=== PATIENT | male | born 1935 | race Caucasian/White ===

== ENCOUNTER 2016-09-10 08:37 | Emergency (ER) | payer MEDICARE, MEDICAID ==
[~2016-09-10] VITALS: Ht 170.2 cm; Wt 75.5 kg
[~2016-09-10 08:37] MED LIST: AMLO5TAB4 PO; ATOR20TA38 PO; CHOL100062 PO; CLOP75TA28 PO; DOCU-144 PO; HYDR-902 PO; LEVE500T8 PO; LEVO25TA59 PO; TAMS-14 PO
[2016-09-10 08:41] VITALS: Ht 170.2 cm; Wt 75.5 kg
[2016-09-10] MEDS ORDERED: ONDANSETRON 4 MG INJ IV STA (08:49)
[2016-09-10] MEDS ORDERED: morphine 2 MG INJ IV STA (08:49)
[2016-09-10] MEDS ORDERED: SOD CHLORIDE 0.9% 500 ML IV STA (08:49)
[2016-09-10 09:22] LABS: BASOPHILS % 0.3 % (0.0-2.0); EOSINOPHILS # 1.4 10^3/ul (0.0-0.5); EOSINOPHILS % 19.9 % (0.0-7.0); HEMATOCRIT 48.5 % (42.0-52.0); HEMOGLOBIN 15.9 g/dl (14.0-18.0); LYMPHOCYTES # 1.8 10^3/ul (0.8-2.9); LYMPHOCYTES % 25.7 % (15.0-51.0); MEAN CORPUSCULAR HEMOGLOBIN 29.3 pg (29.0-33.0); MEAN CORPUSCULAR HGB CONC 32.8 g/dl (32.0-37.0); MEAN CORPUSCULAR VOLUME 89.5 fl (82.0-101.0); MEAN PLATELET VOLUME 10.6 fl (7.4-10.4); MONOCYTE # 0.7 10^3/ul (0.3-0.9); MONOCYTES % 10.7 % (0.0-11.0); NEUTROPHILS % 43.3 % (39.0-77.0); PLATELET COUNT 200 10^3/UL (140-415); RED BLOOD COUNT 5.42 10^6/ul (4.70-6.10); WHITE BLOOD COUNT 6.8 10^3/ul (4.8-10.8)
--- NOTE | 2016-09-10 09:29 | RADRPT ---
PROCEDURE: CT Abdomen and Pelvis without contrast. CLINICAL INDICATION: Abdominal pain and rectal bleeding. TECHNIQUE: CT scan of the abdomen and pelvis without contrast was performed on a multidetector hig h-resolution CT scanner. The patient was scanned without intravenous contrast. Coronal and sagittal reformatted images were obtained from the axial source images. Images were reviewed on a high-resol Urbful PACS workstation. The total exam CTDI equals 9.9 mGy and the total exam DLP equals 615.98 mGy- cm. One or more of the following dose reduction techniques were used: Automated exposure control. Adjustment of the mA and/or kV according to patient size. Use of iterative reconstruction technique. COMPARISON: None FINDINGS: CT abdomen: The lung bases are clear. The heart size is mildly enlarged without pericardial thickening or effus ion. The liver is normal in size and density without focal mass or intrahepatic biliary dilatation. The spleen is normal in size and homogeneous in density. Capsular calcifications are seen along th e lateral aspect of the spleen. The stomach is partially collapsed, but is grossly unremarkable. T he pancreas as visualized is normal. The gallbladder is unremarkable. There is no evidence for bili lilly dilatation. The adrenal glands are symmetric and normal. The kidneys are symmetrically unremar kable as well. No renal calculus or obstructive uropathy or mass lesion is seen. There is approxima tely 7 x 5.5 cm exophytic cortical series with thin wall calcifications in the upper pole right kidn ey. There is mild ectasia of the infrarenal abdominal aorta measures up to 2.6 cm. There is no retroper itoneal lymphadenopathy. The luis manuel hepatis region is clear. There is diverticulosis of the left col on severe in the sigmoid without evidence of acute diverticulitis. There is a small hiatal hernia. CT pelvis: There fat-containing bilateral inguinal hernias. The small bowel loops situated within the pelvis a re unremarkable. There is mild prostatomegaly. The pelvic sidewalls and inguinal regions are clear. The sigmoid colon and rectum are remarkable for sigmoid diverticulosis. No mass, lymphadenopathy, or free fluid is seen. No acute inflammation is seen. No osteolytic or osteoblastic lesion is dete cted. IMPRESSION: 1. No mass, lymphadenopathy, or focal acute inflammatory process is identified. 2. Diverticulosis of the left colon severe in the sigmoid without evidence of acute diverticulitis. 3. Right renal exophytic cyst with thin wall calcifications. 4. 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 5. Mild cardiomegaly. 6. Small hiatal hernia. 7. Fat containing small inguinal hernias. RPTAT: PP .Brooklyn Duncan MD, Date Time Electronically viewed and signed by .Brooklyn Duncan MD, on 09/10/2016 09:28 .O/
[2016-09-10 09:37] LABS: ALBUMIN 4.3 g/dl (3.3-4.9); ALBUMIN/GLOBULIN RATIO 1.13; BILIRUBIN,INDIRECT 1.2 mg/dl (0-1.1); BILIRUBIN,TOTAL 1.2 mg/dl (0.2-1.3); CALCIUM 9.5 mg/dl (8.4-10.2); CREATININE 1.03 mg/dl (0.61-1.24); POTASSIUM 4.3 mmol/L (3.5-5.1); TOTAL PROTEIN 8.1 g/dl (6.1-8.1)
[2016-09-10 09:43] LABS: INR 0.97; PROTIME 12.9 Sec (12.2-14.2)
[2016-09-10 09:44] LABS: PARTIAL THROMBOPLASTIN TIME 29.2 Sec (25.0-35.0)
[2016-09-10 10:04] VITALS: BP 122/83; PULSE 78; RESP 16; TEMP 98.3
--- NOTE | 2016-09-10 10:06 | ERA ---
ER Documentation Chief Complaint Date/Time DATE: 09/10/16 TIME: 10:02 Chief Complaint abd pain with rectal bleeding x 3 days HPI This is an 81-year-old Belarusian speaking male. An management lecturer was used. He describes several days of abdominal cramping that is diffuse, mild, 2 out of 10. He noted some blood-streaked stool over the past 24-48 hours. He denies any clots or significant filling of the bowl. He denies any weight loss. He has not had a colonoscopy at this point in his life. ROS All systems reviewed and are negative except as per history of present illness. Medications Home Meds Active Scripts Clopidogrel Bisulfate (Clopidogrel) 75 Mg Tablet, 75 MG PO DAILY, #30 TAB Prov:TISH STUBBS MD 12/14/15 Docusate Sodium* (Colace*) 100 Mg Capsule, 100 MG PO TID, #30 CAP Prov:DAWN BARKLEY MD 11/17/15 Hydrocodone/Acetaminophen (Selmer 10-325 Tablet) 1 Each Tablet, 1 TAB PO Q6H Y for PAIN, #7 TAB Prov:DAWN BARKLEY MD 11/17/15 Levothyroxine Sodium* (Synthroid*) 25 Mcg Tab, 25 MCG PO DAILY@06, #30 TAB 1 Refill Prov:VIANCA WINSLOW MD 05/12/14 Reported Medications Amlodipine Besylate* (Norvasc*) 5 Mg Tablet, 5 MG PO DAILY, TAB 12/12/15 Cholecalciferol* (Vitamin D3*) 1,000 Unit Tablet, 2000 UNIT PO DAILY, TAB 12/12/15 Atorvastatin Calcium* (Atorvastatin Calcium*) 20 Mg Tablet, 20 MG PO HS, TAB 05/09/14 Levetiracetam* (Levetiracetam*) 500 Mg Tablet, 500 MG PO BID, TAB 05/09/14 Tamsulosin Hcl* (Flomax*) 0.4 Mg Cap.sr.24h, 0.4 MG PO HS 06/10/12 Allergies Allergies: Coded Allergies: No Known Allergy (Unverified , 09/10/16) PMhx/Soc History of Surgery: No Anesthesia Reaction: No Hx Neurological Disorder: Yes (CVA) Hx Respiratory Disorders: No Hx Cardiac Disorders: Yes (HTN, AFIB, CHOL) Hx Psychiatric Problems: No Hx Miscellaneous Medical Probl: Yes (HTn, CVA, amyloid angiopathy, A-Fib, BPH) Hx Alcohol Use: Yes (50 years ago. Hard drinks) Hx Substance Use: No Hx Tobacco Use: No Smoking Status: Former smoker FmHx Family History: No diabetes Physical Exam Vitals Vital Signs Date Time Temp Pulse Resp B/P Pulse Ox O2 Delivery O2 Flow Rate FiO2 09/10/16 08:41 98.2 81 18 158/92 96 Physical Exam General: Well developed, well nourished, no acute distress Head: Normocephalic, atraumatic. Eyes: Pupils equally reactive, EOM intact ENT: Moist mucous membranes Neck: Supple, no lymphadenopathy Respiratory: Lungs clear bilaterally, no distress Cardiovascular: RRR, no murmurs, rubs, or gallops Abdominal: Soft, non-tender, non-distended, no peritoneal signs : External exam with brown stool, no melena, no blood, no hemorrhoid MSK: No edema, no unilateral swelling, 5/5 strength Neurologic: Alert and oriented, moving all extremities, normal speech, no focal weakness, no cerebellar signs Skin: No rash Psych: Normal mood Result Diagram: 09/10/1691409/10/16914 Results 24 hrs Laboratory Tests Test 09/10/16 09:15 White Blood Count 6.810^3/ul Red Blood Count 5.4210^6/ul Hemoglobin 15.9g/dl Hematocrit 48.5% Mean Corpuscular Volume 89.5fl Mean Corpuscular Hemoglobin 29.3pg Mean Corpuscular Hemoglobin Concent 32.8g/dl Red Cell Distribution Width 14.0% Platelet Count 80420^3/UL Mean Platelet Volume 10.6fl Neutrophils % 43.3% Lymphocytes % 25.7% Monocytes % 10.7% Eosinophils % 19.9% Basophils % 0.3% Nucleated Red Blood Cells % 0.0/100WBC Neutrophils # 3.010^3/ul Lymphocytes # 1.810^3/ul Monocytes # 0.710^3/ul Eosinophils # 1.410^3/ul Basophils # 0.010^3/ul Nucleated Red Blood Cells # 0.010^3/ul Prothrombin Time 12.9Sec Prothrombin Time Ratio 1.0 INR International Normalized Ratio 0.97 Activated Partial Thromboplast Time 29.2Sec Sodium Level 141mmol/L Potassium Level 4.3mmol/L Chloride Level 101mmol/L Carbon Dioxide Level 28mmol/L Anion Gap 16 Blood Urea Nitrogen 18mg/dl Creatinine 1.03mg/dl Glucose Level 139mg/dl Calcium Level 9.5mg/dl Total Bilirubin 1.2mg/dl Direct Bilirubin 0.00mg/dl Indirect Bilirubin 1.2mg/dl Aspartate Amino Transf (AST/SGOT) 31IU/L Alanine Aminotransferase (ALT/SGPT) 38IU/L Alkaline Phosphatase 125IU/L Total Protein 8.1g/dl Albumin 4.3g/dl Globulin 3.80g/dl Albumin/Globulin Ratio 1.13 Lipase 31U/L Current Medications Medications (Trade) Dose Ordered Sig/Audra Route PRN Reason Start Time Stop Time Status Last Admin Dose Admin Sodium Chloride (NS) 500 ml @ 500 mls/hr Q1H STAT IV 09/10/16 08:49 09/10/16 09:48 DC 09/10/16 09:45 Morphine Sulfate (morphine) 2 mg ONCE STAT IV 09/10/16 08:49 09/10/16 08:51 DC 09/10/16 09:45 Ondansetron HCl (Zofran Inj) 4 mg ONCE STAT IV 09/10/16 08:49 09/10/16 08:51 DC 09/10/16 09:45 Procedures/MDM EKG, MONITORS, & DIAGNOSTIC IMAGING: CT abdomen and pelvis IMPRESSION: 1. No mass, lymphadenopathy, or focal acute inflammatory process is identified. 2. Diverticulosis of the left colon severe in the sigmoid without evidence of acute diverticulitis. 3. Right renal exophytic cyst with thin wall calcifications. 4. 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 5. Mild cardiomegaly. 6. Small hiatal hernia. 7. Fat containing small inguinal hernias. LAB INTERPRETATION: No leukocytosis, no coagulopathy, normal hemoglobin MEDICAL DECISION MAKING: The patient presents with abdominal cramping, blood-streaked stool. The patient is a very broad differential given his age but this is most likely consistent with diverticular process, consider possible malignancy given lack of colonoscopy and routine health screening. Low concern for acute intra- abdominal process or upper GI hemorrhage. ER COURSE: The patient's laboratory testing is reassuring, no evidence of upper GI bleed. His rectal exam reveals brown stool. No evidence of active hemorrhage. CT shows diverticulosis but no other acute intra-abdominal process. The patient absolutely needs to follow-up with primary care physician and have colonoscopy to rule out malignancy. This was indicated to the patient and family using an management lecturer. The patient does not require hospitalization. He is safe for discharge. I kept the patient and/or family informed of laboratory and diagnostic imaging results throughout the emergency room course. DISPOSITION PLAN: We discussed follow up with the patient's primary care doctor within 24 to 48 hours as needed. We also discussed return to the emergency room for worsening symptoms or worsening condition. Outpatient referral: Gastroenterology Discharge Medications: None required Departure Diagnosis: Primary Impression: Abdominal pain Qualified Code: R10.84 - Generalized abdominal pain Additional Impression: Rectal bleeding Condition: Stable Patient Instructions: Abdominal Pain, Rectal Bleed, Stable Referrals: [facility] () Usted se zazueta hecho un examen mdico de control que le indica que no est en fernando condicin que requiera tratamiento urgente en el Departamento de Emergencia. Un estudio ms profundo y el tratamiento de south condicin pueden esperar sin ningn riesgo hasta que usted sea atendida/o en el consultorio de south mdico o fernando cl aryan. Es responsabilidad suya arreglar fernando epifanio para el seguimiento del riley. MANEJO DE CONDICIONES NO URGENTES EN EL FUTURO 1) Si usted tiene un mdico de atencin primaria: Usted debera llamar a south mdico de atencin primaria antes de venir al departamento de emergencia. Despus de las horas de consultorio, south doctor o south asociado/a est disponible por telfono. El mdico o enfermero de steve en el servicio telefnico puede asesorarle por kenny medio para atender el problema, o riley contrario se puede programar fernando epifanio. 2) Si usted no tiene un mdico de atencin primaria: Llame al mdico o clnica de referencia que aparece abajo sukhdev las horas de consultorio para hacer fernando epifanio para que le vean. CLINICAS: [facility] [phone] [facility] [phone] [facility] [phone] [facility] [phone] [facility]. [place] [address] [phone] [facility] [phone] [facility]. [facility] () Usted se zazueta hecho un examen mdico de control que le indica que no est en fernando condicin que requiera tratamiento urgente en el Departamento de Emergencia. Un estudio ms profundo y el tratamiento de south condicin pueden esperar sin ningn riesgo hasta que ted sea atendida/o en el consultorio de south mdico o fernando cl aryan. Es responsabilidad suya arreglar fernando epifanio para el seguimiento del riley. MANEJO DE CONDICIONES NO URGENTES EN EL FUTURO 1) Si usted tiene un mdico de atencin primaria: ted debera llamar a south mdico de atencin primaria antes de venir al departamento de emergencia. Despus de las horas de consultorio, south doctor o south asociado/a est disponible por telfono. El mdico o enfermero de steve en el servicio telefnico puede asesorarle por kenny medio para atender el problema, o riley contrario se puede programar fernando epifanio. 2) Si usted no tiene un mdico de atencin primaria: Llame al mdico o condado institucions de referencia que aparece abajo sukhdev las horas de consultorio para hacer fernando epifanio para que le vean. SI USTED NO PUEDE PAGAR PARA HEIDY UN MEDICO puede ir a: [facility] [address] [place] [address] [facility] [address] [place] [address] [facility] [address] [place] [address] [facility] [address] [place], [place] [id number] Additional Instructions: Llame al doctor nombrado enmanuel (Referral Sources) MAANA y gurinder fernando EPIFANIO PARA DENTRO DE FERNANDO SEMANA. Dgale a la secretaria que nosotros le instruimos hacer esta epifanio.Avise o llame si south condicin se empeora antes de la epifanio. SHERRIE LOUIE MD Sep 10, 2016 10:06
== END 2016-09-10 10:11 | disposition home or self-care (01) ==
LOC: E/R 08:37
DX: R10.84 Generalized abdominal pain (principal); K62.5 Hemorrhage of anus and rectum; R40.2142 Coma scale, eyes open, spontaneous, at arrival to emergency department; R40.2252 Coma scale, best verbal response, oriented, at arrival to emergency department; R40.2362 Coma scale, best motor response, obeys commands, at arrival to emergency department; I10 Essential (primary) hypertension; Z87.891 Personal history of nicotine dependence
CPT/HCPCS: 36415; 74176; 80053; 83690; 85025; 85610; 85730; 96374; 96375; 99285; J2270; J2405; J7040

== ENCOUNTER 2016-09-12 10:00 | Emergency (ER) | payer OTHER ==
[~2016-09-12] VITALS: Ht 165.1 cm; Wt 77.3 kg
[2016-09-12 10:04] VITALS: Ht 165.1 cm; Wt 77.3 kg
--- NOTE | 2016-09-12 10:24 | RADRPT ---
PROCEDURE: Noncontrast CT Head. CLINICAL INDICATION: Code stroke. Acute neurologic deficit. TECHNIQUE: Noncontrast CT of the head was obtained. The administered radiation dose was CTDI vol = 43.05 mGy, DLP = 630.2 mGy-cm. One or more of the following dose reduction techniques were used: Aut omated exposure control, Adjustment of the mA and/or kV according to patient size, or Use of iterati ve reconstruction technique. COMPARISON: There are no similar studies submitted for comparison. FINDINGS: There is minimal generalized cerebral volume loss. There is extensive periventricular hypoattenuatio n suggesting chronic microvascular ischemic changes. There are mild vascular calcifications within the intracranial carotid arteries. There is a chronic right frontal parietal infarction partially i nvolving the right insula. There is an age indeterminate but possibly chronic superior left occipita l lobe infarction. There is no loss of browning-white differentiation to suggest acute territorial infarction. There is no acute intracranial hemorrhage. There is no mass effect. No midline shift is identified. The orbits are within normal limits. The paranasal sinuses are well aerated. No destructive osseous lesion is identified. IMPRESSION: 1. No loss of browning-white differentiation to suggest acute territorial infarction. Consider CTA of t he head/neck or noncontrast MRI of the brain as clinically warranted. 2. No acute intracranial hemorrhage. 3. Minimal generalized cerebral volume loss. 4. Advanced chronic microvascular ischemic changes. 5. Chronic right frontal parietal infarction. 6. Age indeterminate but possibly chronic left superior septal lobe infarction. Further findings as detailed above. These findings were discussed with Dr. Ramirez Best at 10:22 a.m. on September 12, 2016. RPTAT: PP .Gavin Gonzalez MD, MD Date Time Electronically viewed and signed by .Gavin Gonzalez MD, on 09/12/2016 10:24 .F/
[2016-09-12 10:31] LABS: BASOPHILS % 0.2 % (0.0-2.0); EOSINOPHILS # 0.8 10^3/ul (0.0-0.5); EOSINOPHILS % 10.2 % (0.0-7.0); HEMATOCRIT 47.8 % (42.0-52.0); HEMOGLOBIN 15.9 g/dl (14.0-18.0); LYMPHOCYTES % 23.7 % (15.0-51.0); MEAN CORPUSCULAR HEMOGLOBIN 29.6 pg (29.0-33.0); MEAN CORPUSCULAR HGB CONC 33.3 g/dl (32.0-37.0); MEAN PLATELET VOLUME 10.5 fl (7.4-10.4); MONOCYTE # 0.7 10^3/ul (0.3-0.9); MONOCYTES % 8.3 % (0.0-11.0); NEUTROPHIL # 4.7 10^3/ul (1.6-7.5); NEUTROPHILS % 57.2 % (39.0-77.0); PLATELET COUNT 192 10^3/UL (140-415); RED BLOOD COUNT 5.37 10^6/ul (4.70-6.10); RED CELL DISTRIBUTION WIDTH 13.4 % (11.5-14.5); WHITE BLOOD COUNT 8.2 10^3/ul (4.8-10.8)
[2016-09-12] MEDS ORDERED: TAMS-14 PO (10:54)
[2016-09-12] MEDS ORDERED: GABA100C14 PO (10:54)
[2016-09-12] MEDS ORDERED: OXYB10TA6 PO (10:54)
[2016-09-12] MEDS ORDERED: AMLO5TAB4 PO (10:55)
[2016-09-12] MEDS ORDERED: SERT50TA6 PO (10:55)
[2016-09-12] MEDS ORDERED: LOSA50TA6 PO (10:55)
[2016-09-12 10:56] LABS: INR 0.99; PARTIAL THROMBOPLASTIN TIME 26.9 Sec (25.0-35.0); PROTIME 13.1 Sec (12.2-14.2)
[2016-09-12 10:57] LABS: ALANINE AMINOTRANSFERASE 34 IU/L (13-69); ALBUMIN 4.3 g/dl (3.3-4.9); ALBUMIN/GLOBULIN RATIO 1.07; ALKALINE PHOSPHATASE 130 IU/L (42-121); ANION GAP 20 (8-16); ASPARTATE AMINO TRANSFERASE 29 IU/L (15-46); BILIRUBIN,INDIRECT 1.4 mg/dl (0-1.1); BILIRUBIN,TOTAL 1.4 mg/dl (0.2-1.3); BLOOD UREA NITROGEN 15 mg/dl (7-20); CALCIUM 9.5 mg/dl (8.4-10.2); CARBON DIOXIDE 27 mmol/L (21-31); CHLORIDE 100 mmol/L (97-110); CHOL/HDL RATIO 5.4 RATIO; CHOLESTEROL 239 mg/dl (100-200); CREATININE 0.76 mg/dl (0.61-1.24); GLUCOSE 172 mg/dl (70-220); HDL CHOLESTEROL 44 mg/dl (31-75); POTASSIUM 3.2 mmol/L (3.5-5.1); SODIUM 144 mmol/L (135-144); TOTAL PROTEIN 8.3 g/dl (6.1-8.1); TRIGLYCERIDES 208 mg/dl (0-149)
[2016-09-12] MEDS ORDERED: LABETALOL HCL 20MG INJ IV PRN (11:00)
[2016-09-12] MEDS ORDERED: ALTEPLASE (tPA) 1 MG/ML BOLUS SYG IV* ONE (11:00)
[2016-09-12] MEDS ORDERED: ALTEPLASE 100 MG INJ IV* ONE (11:00)
--- NOTE | 2016-09-12 11:05 | ERA ---
ER Documentation Chief Complaint Date/Time DATE: 09/12/16 TIME: 1000 Chief Complaint SUDDEN ALOC, GAZE TO LT WITH RT SIDE WEAKNESS, LAST NORMAL 0900 HPI 82-year-old male presents with an altered level of consciousness. Patient is aphasic. History is available for my conversations with the ornamental iron worker. Patient was in his usual state of health until approximately 9 AM today. His last known well time was after 8 AM, when he had a normal breakfast, was talking and ambulatory without difficulty. At 9 AM the ornamental iron worker noted that he had a fall. After the fall, he was not able to use his right upper extremity and was not communicating. The paramedics were immediately called. Patient had no obvious seizure activity. Patient had no symptoms prior to the episode. Baseline neurologic function of the patient is that he has had previous strokes with left upper extremity weakness, but was ambulatory and talking prior to today's event. I have reviewed the instructional leader pre-hospital care. Pre-hospital vital signs were reviewed. Pre-hospital diagnostic tests were reviewed. Upon arrival, patient has no further ability to give any history. ROS All systems reviewed and are negative except as per history of present illness. Medications Home Meds Reported Medications Tamsulosin Hcl* (Flomax*) 0.4 Mg Cap.er.24h, 0.4 MG PO HS, CAP 09/12/16 Gabapentin* (Gabapentin*) 100 Mg Capsule, 100 MG PO TID, #90 CAP 09/12/16 Oxybutynin Chloride* (Ditropan* XL) 10 Mg Tab.er.24, 10 MG PO DAILY, TAB.SA 09/12/16 Allergies Allergies: Coded Allergies: No Known Allergy (Unverified , 09/12/16) PMhx/Soc History of Surgery: Yes (PROSTATE, ABD) Anesthesia Reaction: No Hx Neurological Disorder: Yes (CVA WITH LT SIDE WEAKNESS) Hx Respiratory Disorders: No Hx Cardiac Disorders: Yes (HTN, HYPERLIPIDEMIA) Hx Psychiatric Problems: Yes (DEPRESSION) Hx Miscellaneous Medical Probl: No Hx Alcohol Use: No Hx Substance Use: No Hx Tobacco Use: No Smoking Status: Unknown if ever smoked FmHx Noncontributory for chief complaint Physical Exam Vitals Vital Signs Date Time Temp Pulse Resp B/P Pulse Ox O2 Delivery O2 Flow Rate FiO2 09/12/16 10:08 Nasal Cannula 2 09/12/16 10:04 97.7 101 20 173/104 98 Physical Exam GENERAL: Patient is an ill, altered gentleman. HEENT: Pupils equal, round, and reactive to light. EOMI. There is no scleral icterus. Airway is protected NECK: C-spine is soft and supple, there is no meningismus. There is no cervical lymphadenopathy. No obvious bruit LUNGS: Clear to auscultation bilaterally. There are no rales, wheezes or rhonchi. HEART: Irregularly irregular rate and rhythm with no murmurs rubs or gallops ABDOMEN: Soft, non-tender, non-distended. There are bowel sounds in all four quadrants. No rebound or guarding. EXTREMITIES: There is no peripheral cyanosis or edema. No focal swelling or erythema. NEURO: Patient is obtunded and nonresponsive to verbal or painful stimuli. His eyes are open spontaneously with a left-sided gaze preference. Pupils are small but equal and reactive. Gag reflex is maintained. Patient appears to have a facial droop involving the right side. Patient is aphasic, he occasionally grunts. Left upper extremity has weakness, which according to the care provider is baseline. Patient has a flaccid paralysis of the right upper extremity. Patient moves both lower extremities weakly and equally. However, this is nonpurposeful movements of far as I can tell. Patient seems to have a questionable visual acuity deficit with inattention to both sides of the body. SKIN: There is no apparent rash or petechiae. HEME/LYMPHATIC: There is no evidence of excessive bruising or lymphedema. PSYCHIATRIC: The patient does not appear anxious or depressed. Result Diagram: 09/12/16 1020 Results 24 hrs Laboratory Tests Test 09/12/16 10:03 09/12/16 10:20 Bedside Glucose 161mg/dL White Blood Count 8.210^3/ul Red Blood Count 5.3710^6/ul Hemoglobin 15.9g/dl Hematocrit 47.8% Mean Corpuscular Volume 89.0fl Mean Corpuscular Hemoglobin 29.6pg Mean Corpuscular Hemoglobin Concent 33.3g/dl Red Cell Distribution Width 13.4% Platelet Count 22076^3/UL Mean Platelet Volume 10.5fl Neutrophils % 57.2% Lymphocytes % 23.7% Monocytes % 8.3% Eosinophils % 10.2% Basophils % 0.2% Nucleated Red Blood Cells % 0.0/100WBC Neutrophils # 4.710^3/ul Lymphocytes # 2.010^3/ul Monocytes # 0.710^3/ul Eosinophils # 0.810^3/ul Basophils # 0.010^3/ul Nucleated Red Blood Cells # 0.010^3/ul Current Medications Medications (Trade) Dose Ordered Sig/Audra Route PRN Reason Start Time Stop Time Status Last Admin Dose Admin Labetalol HCl (Labetalol) 20 mg Q20M PRN IV ELEVATED BLOOD PRESSURE 09/12/16 11:00 Alteplase, Recombinant (Activase) 7 mg BOLUS OVER 1 MIN ONCE IV* 09/12/16 11:00 09/12/16 11:01 Alteplase, Recombinant (Activase) 62.6 mg ISCHEMIC STROKE ONCE IV* 09/12/16 11:00 09/12/16 11:01 Procedures/MDM Patient was taken to a room, seen and evaluated. Comfort measures were initiated. Diagnostic tests were ordered and reviewed. 3 LEAD RHYTHM STRIP: Atrial fibrillation with controlled ventricular response EK lead EKG reviewed by myself: Atrial fibrillation with controlled ventricular response Normal Charl[place] and intervals Nonspecific ST and T-wave changes Impression: Abnormal nonspecific EKG RADIOLOGY: reviewed with the radiologist. Code stroke CT returned at approximately 1030 CONSULTATION: Telemetry neurology was notified at approximately 1002 and called back expeditiously. [facility] was contacted at 1033 for transport. REEVALUATION: Patient's initial blood pressure was elevated. After returning from CT scan at approximately 1035 blood pressure was controlled without the use of medication. Consent was obtained from the son verbally at approximately 1040 and IV TPA was initiated. MEDICAL DECISION MAKING: Patient presents with acute neurologic changes concerning for a stroke. Critical care time:> 35 minutes Critical care has included ongoing critical monitoring of neurologic as well as hemodynamic status. Multiple consultations including: Code stroke: Upon arrival Tele neurology: Upon arrival Radiology: As noted above with no evidence of hemorrhage on CT scan Accepting MD: Patient is accepted to [facility] for higher level of care TPA: TPA initiated Intravascular decision making: Patient is high risk for a large vessel occlusion and will be transferred for higher level of care. CTA has been ordered and is pending at this time. Medical decision making: This is an 82-year-old male with a history of atrial fibrillation and previous strokes but who is normally talkative and ambulatory prior to today's event. Although with his history of previous strokes, he is obviously high risk TPA candidate, his presenting NIHSS score is above 30 and his disabilities would leave him bedbound and noncommunicative. Therefore, because his blood pressure was controlled and he was within the window of TPA, I felt the risk and benefits benefited TPA administration. TPA has been given and patient will be transferred for stroke higher level of care given his obvious high risk presentation. Departure Diagnosis: Primary Impression: Stroke Additional Impressions: Atrial fibrillation Encephalopathy Hypertension Condition: Critical JACK CAMILO Sep 12, 2016 11:05
[2016-09-12 11:09] LABS: TROPONIN-I < 0.012 ng/ml (0.00-0.12)
--- NOTE | 2016-09-12 11:21 | RADRPT ---
PROCEDURE: Chest x-ray CLINICAL INDICATION: Shortness of breath TECHNIQUE: Chest single view COMPARISON: None FINDINGS: The heart is normal in size. The pulmonary vessels are normal in caliber. The lungs are clear. Th e costophrenic angles are sharp. The visualized bony thorax is unremarkable. There is mild cardiome adam and an sclerotic aortic calcification. Pulmonary vessels are normal in caliber. Lung volumes are low with bibasilar atelectasis. Lungs otherwise clear. Costophrenic angles are sharp. There i s grade 1 right AC joint separation. IMPRESSION: 1. Mild cardiomegaly and an sclerotic aortic calcification. 2. Low lung volumes with bibasilar atelectasis RPTAT: HH .Mendez Peña MD, Date Time Electronically viewed and signed by .Mendez Peña MD, on 09/12/2016 11:20 .W/
[2016-09-12 11:50] VITALS: BP 167/103; PULSE 102; RESP 19; TEMP 97.2
--- NOTE | 2016-09-12 12:06 | RADRPT ---
PROCEDURE: CTA Head. CLINICAL INDICATION: Stroke. TECHNIQUE: CTA of the head was obtained with 1 mm axial images. Sagittal and coronal reformations and MIPs were provided. The administered radiation dose was CTDI vol = 110.51, 33.21 mGy, DLP = the 5.26, 622.93 mGy-cm. Images were obtained prior following the intravenous contrast administration o f 90 cc of Visipaque 320 contrast. Coronal and sagittal as well as maximal intensity projection ref ormations were obtained. One or more of the following dose reduction techniques were used: Automated exposure control, Adjustment of the mA and/or kV according to patient size, or Use of iterative rec onstruction technique. COMPARISON: There are no similar studies submitted for comparison. Noncontrast CT of the head from he same day. FINDINGS: CTA head: Carotid arteries: There are mild vascular calcifications within the bilateral cavernous carotid verónica liss. Patent bilaterally without evidence of stenosis. Anterior cerebral arteries: Patent bilaterally without evidence of stenosis. Middle cerebral arteries: Patent bilaterally without evidence of stenosis. Posterior cerebral arteries: Patent bilaterally without evidence of stenosis. Anterior communicating artery: Present. Posterior communicating arteries: Not visualized bilaterally. Basilar artery: Patent without evidence of stenosis. Vertebral arteries: Patent bilaterally without evidence of stenosis. Vertebral artery dominance: Right. Aneurysm: There is a small conical protrusion at the origin of the expected left posterior communic ating artery likely representing an infundibulum or less likely aneurysm. Venous sinuses: Patent. CT head with contrast: No significant change from recent noncontrast head CT given limitations of contrast. IMPRESSION: 1. No evidence of arterial occlusion or thrombus. 2. No evidence of intracranial arterial stenosis. 3. Small conical protrusion at the origin of the expected left posterior communicating artery likel y representing an infundibulum or less likely aneurysm. Follow-up imaging may be performed as clinic ally warranted. Further findings as detailed above. These findings were discussed with Dr. Ramirez Best at 12:02 p.m. on September 12, 2016. RPTAT: PP .Gavin Gonzalez MD, Date Time Electronically viewed and signed by .Gavin Gonzalez MD, MD on 09/12/2016 12:06 .F/
[2016-09-13] MEDS ORDERED: IODIXANOL LOCM 100 ML BTL ONE (18:02)
[2016-09-13] MEDS ORDERED: SOD CHLORIDE 0.9% 100 ML ONE (18:02)
== END 2016-09-12 12:41 | disposition short-term general hospital (02) ==
LOC: EDBD → MERGE 10:00 → E/R 10:00
DX: I63.9 Cerebral infarction, unspecified (principal); I48.91 Unspecified atrial fibrillation; G93.40 Encephalopathy, unspecified; I10 Essential (primary) hypertension; R40.2142 Coma scale, eyes open, spontaneous, at arrival to emergency department; R40.2212 Coma scale, best verbal response, none, at arrival to emergency department; R40.2312 Coma scale, best motor response, none, at arrival to emergency department
CPT/HCPCS: 36415; 37195; 70450; 70496; 71010; 80053; 80061; 82962; 83036; 84484; 85025; 85610; 85730; 86850; 86900; 86901; 93005; 99291; J2997; Q9967